=== PATIENT | female | born 1930 | race Caucasian/White ===

== ENCOUNTER 2018-02-21 11:07 | Emergency (ER) | payer OTHER, MEDICAID ==
[~2018-02-21] VITALS: Ht 162.6 cm; Wt 61.7 kg
--- NOTE | 2018-02-21 11:15 | NUR ---
PT BIB [facility],WARM TO TOUCH/COUGH/CHEST CONGESTION AND LOW 02 SAT 80'S. ALERT AND ORIENTED X 3, VERBALLY RESPONSIVE. ON 02 @ 3LPM VIA NC. SATING AT 98%. DENIES ANY PAIN AT THIS TIME. CONNECTED TO THE MONITOR AND PULSE OX. KEPT COMFORTABLE, WILL CONTINUE TO MONITOR ACCORDINGLY.
[2018-02-21 11:35] LABS: BASOPHILS % (AUTO) 0.5 % (0.0-2.0); HEMATOCRIT 32 % (33-45); HEMOGLOBIN 10.5 g/dL (11.5-14.8); LYMPHOCYTES # (AUTO) 0.4 /CMM (0.8-4.8); LYMPHOCYTES % (AUTO) 4.6 % (20.0-44.0); MEAN CORPUSCULAR HGB CONC 33 g/dl (31.0-36.0); MEAN CORPUSCULAR VOLUME 94 fL (82-100); MONOCYTES # (AUTO) 1.2 /CMM (0.1-1.30); MONOCYTES % (AUTO) 12.6 % (2.0-12.0); NEUTROPHILS # (AUTO) 7.7 /CMM (1.8-8.9); NEUTROPHILS % (AUTO) 82.3 % (43.0-81.0); PLATELET COUNT (AUTO) 176 /CMM (150-450); RED BLOOD CELL COUNT(AUTO) 3.41 MIL/uL (4.0-5.2); WHITE BLOOD COUNT (AUTO) 9.4 K/uL (4.3-11.0)
[2018-02-21 11:48] LABS: CALCIUM, SERUM 8.4 mg/dL (8.5-10.1); CARBON DIOXIDE 31 mmol/L (21-32); CHLORIDE 98 mmol/L (98-107); GLUCOSE 98 mg/dL (74-106); POTASSIUM 4.6 mmol/L (3.5-5.1); SODIUM SERUM 134 mmol/L (136-145); UREA NITROGEN, BLOOD 26 mg/dL (7-18)
[2018-02-21] MEDS ORDERED: IV NS 0.9% 1,000 ML BAG IV ONE ×2 (12:00→12:30)
--- NOTE | 2018-02-21 12:29 | NUR ---
CALLED [facility] FOR THIS PATIENT
[2018-02-21] MEDS ORDERED: LEVOFLOXACIN 750 MG /D5W 150ML PIGGYBACK IV ONE (12:30)
[2018-02-21] MEDS ORDERED: SIMV40TA5 PO (12:31)
[2018-02-21] MEDS ORDERED: CALC500T52 PO (12:31)
[2018-02-21] MEDS ORDERED: DONE10TA44 PO (12:31)
[2018-02-21] MEDS ORDERED: LEVO50TA8 PO (12:31)
[2018-02-21] MEDS ORDERED: ATEN50TA PO (12:31)
[2018-02-21] MEDS ORDERED: MAGN400O6 PO (12:31)
[2018-02-21] MEDS ORDERED: DOCU250C14 PO (12:31)
[2018-02-21] MEDS ORDERED: NA P133E RC (12:31)
[2018-02-21] MEDS ORDERED: ASCO500T9 PO (12:31)
[2018-02-21] MEDS ORDERED: AMIN30LI2 PO (12:31)
[2018-02-21] MEDS ORDERED: VALP250S4 PO (12:31)
[2018-02-21] MEDS ORDERED: MULT-659 PO (12:31)
[2018-02-21] MEDS ORDERED: ACET-868 PO (12:31)
[2018-02-21] MEDS ORDERED: RISP0.253 PO ×2 (12:31)
[2018-02-21] MEDS ORDERED: CHOL100044 PO (12:31)
[2018-02-21] MEDS ORDERED: DIGO125T PO (12:31)
[2018-02-21] MEDS ORDERED: PANT40TA2 PO (12:31)
[2018-02-21 12:42] VITALS: BP 106/55
--- NOTE | 2018-02-21 14:33 | NUR ---
TRANSFER TO [facility] INFO: PRN ETA 1530 ACCEPTING MD MCGRATH RN REPORT [phone]
--- NOTE | 2018-02-21 14:56 | NUR ---
CALLED [facility] AND SPOKE TO DANNI CHARGE NURSE AND REPORT GIVEN FOR CHETAN.
--- NOTE | 2018-02-21 15:48 | NUR ---
pt picked up by [employer] and rn in no apparent distress noted. going to [facility].
[2018-02-21] MEDS ORDERED: PIPERACILLIN /TAZOBACTAM 3.375 G in IV D5W 50 ML IV SCH (18:00)
== END 2018-02-21 15:47 | disposition short-term general hospital (02) ==
LOC: ER 11:09
DX: J18.9 Pneumonia, unspecified organism (principal); E86.0 Dehydration; I45.10 Unspecified right bundle-branch block; I48.91 Unspecified atrial fibrillation; I10 Essential (primary) hypertension; E03.9 Hypothyroidism, unspecified; E78.5 Hyperlipidemia, unspecified; G30.9 Alzheimer's disease, unspecified; I25.10 Atherosclerotic heart disease of native coronary artery without angina pectoris; M19.90 Unspecified osteoarthritis, unspecified site; Z79.899 Other long term (current) drug therapy
CPT/HCPCS: 36415; 71045; 80048; 83605; 84484; 85025; 87040 ×2; 93005; 96361; 96365; 96368; 99285; A4606; J1956; J2543; J7030; J7060

== ENCOUNTER 2018-10-22 14:27 | Emergency (ER) | payer OTHER, MEDICAID ==
[~2018-10-22] VITALS: Ht 170.2 cm; Wt 56.7 kg
[~2018-10-22 14:27] MED LIST: ACET-868 PO; AMIN30LI2 PO; ASCO500T9 PO; ATEN50TA PO; CALC500T52 PO; CHOL100044 PO; DIGO125T PO; DOCU250C14 PO; DONE10TA44 PO; LEVO50TA8 PO; MAGN400O6 PO; MULT-659 PO; NA P133E RC; PANT40TA2 PO; RISP0.253 PO; SIMV-49 PO; VALP250S4 PO
--- NOTE | 2018-10-22 14:32 | NUR ---
"[id number] FOR PERIODS OF LOC x 2-3WKS, BS [address]" PT AWAKE, PT ON MONITOR, VSS ,NAD NOTED, PENDING MD WETZEL
--- NOTE | 2018-10-22 14:43 | NUR ---
DAUGHTER: JACQUELINE AGUILAR PHONE: [phone]
[2018-10-22] MEDS ORDERED: DEXT15DR6 OP (14:47)
[2018-10-22] MEDS ORDERED: ALBU18HF2 IH (14:47)
[2018-10-22] MEDS ORDERED: CRAN3875 PO (14:47)
[2018-10-22] MEDS ORDERED: LORAZEPAM INJ 2 MG/ML VIAL IV ONE (15:00)
[2018-10-22 15:05] LABS: BASOPHILS % (AUTO) 0.3 % (0.0-2.0); EOSINOPHILS % (AUTO) 0.3 % (0.0-6.0); HEMATOCRIT 38 % (33-45); HEMOGLOBIN 12.6 g/dL (11.5-14.8); LYMPHOCYTES # (AUTO) 0.3 /CMM (0.8-4.8); LYMPHOCYTES % (AUTO) 4.4 % (20.0-44.0); MEAN CORPUSCULAR HGB CONC 33 g/dl (31.0-36.0); MEAN CORPUSCULAR VOLUME 94 fL (82-100); MONOCYTES # (AUTO) 0.6 /CMM (0.1-1.30); MONOCYTES % (AUTO) 7.8 % (2.0-12.0); NEUTROPHILS # (AUTO) 6.7 /CMM (1.8-8.9); NEUTROPHILS % (AUTO) 87.2 % (43.0-81.0); PLATELET COUNT (AUTO) 193 /CMM (150-450); RED BLOOD CELL COUNT(AUTO) 4.07 MIL/uL (4.0-5.2); WHITE BLOOD COUNT (AUTO) 7.7 K/uL (4.3-11.0)
[2018-10-22] MEDS ORDERED: LORAZEPAM INJ 2 MG/ML VIAL ONE (15:13)
[2018-10-22 15:15] LABS: CALCIUM, SERUM 8.5 mg/dL (8.5-10.1); CARBON DIOXIDE 33 mmol/L (21-32); CHLORIDE 96 mmol/L (98-107); CREATININE 0.9 mg/dL (0.6-1.3); GLUCOSE 171 mg/dL (74-106); POTASSIUM 3.7 mmol/L (3.5-5.1); SODIUM SERUM 136 mmol/L (136-145); UREA NITROGEN, BLOOD 18 mg/dL (7-18)
[2018-10-22 15:17] LABS: ABG BASE EXCESS 1.8 mmol/L; ABG OXYGEN SATURATION 96.2 % (92.0-98.5); ABG PCO2 44.6 mmHg (35.0-45.0); ABG PO2 91.7 mmHg (75.0-100.0); AaDO2 55.3 mmHg; COHb 0.7 % (0.5-1.5); MetHb 0.2 % (0.0-1.5); O2Hb 95.3 % (94.0-97.0); SITE, ABG Right Radial; VENT MODE, BG Nasal Cannula
[2018-10-22 15:21] LABS: ALANINE AMINOTRANSFERASE 13 U/L (12-78); ALBUMIN 3.2 g/dL (3.4-5.0); ALKALINE PHOSPHATASE 53 U/L (46-116); ASPARTATE AMINOTRANSFERASE 13 U/L (15-37); BILIRUBIN,DIRECT 0.2 mg/dL (0.0-0.2); BILIRUBIN,TOTAL 0.6 mg/dL (0.2-1.0); TOTAL PROTEIN, SERUM 6.7 g/dL (6.4-8.2)
[2018-10-22 16:19] LABS: APPEARANCE,URINE Slightly Cloudy (CLEAR); BILIRUBIN,URINE Negative (NEGATIVE); BLOOD, URINE Negative Ery/uL (NEGATIVE); COLOR,URINE Dark (YELLOW); KETONES,URINE Negative (NEGATIVE); LEUKOCYTE ESTERASE ,URINE Negative (NEGATIVE); NITRITE, URINE Negative (NEGATIVE); PROTEIN,URINE Negative (NEGATIVE); UGLUCOSE Negative (NEGATIVE)
[2018-10-22 16:30] LABS: BACTERIA,URINE Few /HPF (None Seen); RBC,URINE 0-2 /HPF (0-2); SQUAMOUS EPITHELIAL CELL,UR Few /HPF (None Seen); WBC,URINE NONE SEEN /HPF (0-3)
[2018-10-22 16:31] LABS: URINE AMORPHOUS PHOSPHATES Few /HPF (None Seen)
--- NOTE | 2018-10-22 17:48 | NUR ---
[facility]ED [facility], AWAITING CALL FROM HERNANDO DOC
--- NOTE | 2018-10-22 18:54 | NUR ---
TRANSFER INFO: GOING TO [facility] BED: ER TO ER REPORT:[phone] ACCEPTED BY: DR [facility]GADO [facility]: ZAKIYA FERNANDEZ ETA: [phone]
[2018-10-22 19:13] VITALS: BP 110/65
--- NOTE | 2018-10-22 19:41 | NUR ---
REPROT GIVEN TO KURT RN NURSE AT [facility]
--- NOTE | 2018-10-22 20:02 | NUR ---
[facility] IN FACILITY, PT TRANSPORTED TO [facility] ER, PT IN STABLE CONDITION ,VSS, PT LEFT VIA GURNEY, REPORT GIVEN TO STAFF
== END 2018-10-22 20:05 | disposition short-term general hospital (02) ==
LOC: ER 14:38
DX: R55 Syncope and collapse (principal); I49.8 Other specified cardiac arrhythmias; I45.10 Unspecified right bundle-branch block; I44.4 Left anterior fascicular block; R41.82 Altered mental status, unspecified; I48.91 Unspecified atrial fibrillation; E11.9 Type 2 diabetes mellitus without complications; I10 Essential (primary) hypertension; I25.10 Atherosclerotic heart disease of native coronary artery without angina pectoris; F41.9 Anxiety disorder, unspecified; G30.9 Alzheimer's disease, unspecified; F02.80 Dementia in other diseases classified elsewhere, unspecified severity, without behavioral disturbance, psychotic disturbance, mood disturbance, and anxiety; E03.9 Hypothyroidism, unspecified; E78.5 Hyperlipidemia, unspecified
CPT/HCPCS: 36415; 36600; 51701; 70450; 71045; 80048; 80076; 81001; 82962; 84484; 85025; 85730; 87081; 93005; 96374; 99285; J2060; J7030; 81000-TC